=== PATIENT | male | born 1940 | race Caucasian/White ===

== ENCOUNTER 2021-05-20 23:44 | Inpatient (IN) ==
[2021-05-21] MEDS ORDERED: SODIUM CHLORIDE 0.9% 500 ML IV STA (00:06)
[2021-05-21] MEDS ORDERED: ONDANSETRON INJ 2 MG/ML 2 ML VIAL IV STA (00:06)
[2021-05-21] MEDS ORDERED: KETOROLAC TROMETHAMINE 15 MG/ML VIAL IV STA (00:06)
--- NOTE | 2021-05-21 00:11 | Emergency Department Note ---
Impression & Plan Diffuse abdominal pain, Nausea, Leukocytosis, Bowel perforation ED Provider Note NAME: KEITH PARRA AGE: 80 SEX: M : 1940 ARRIVES VIA: Walk-In INFORMANT: [Patient] ED PROVIDER(S): [Christiano Dewitt MD] CHIEF COMPLAINT: Abdominal pain HISTORY OF PRESENT ILLNESS: The patient is a 80-year-old male presents to the ER with around 8 hours of diffuse abdominal pain that radiates to the diaphragm. The pain comes in waves and he has had some slight nausea. The pain is a 7, sometimes a 9 on a scale of 1-10. The patient denies any shortness of breath or sweating. He had a normal bowel movement earlier today. He has no known history of coronary disease. He has been trying Gas-X throughout the night without relief. No bad food eaten, no recent sick contacts. No history of any similar issues. No urinary complaints. REVIEW OF SYSTEMS: See HPI for pertinent positives and negatives. A total of ten systems were reviewed and were otherwise negative. PMHx/PSHx: See Below SOCIAL HISTORY: See Below. PHYSICAL EXAM: GENERAL: Patient is in no acute distress. HEENT: No acute trauma, normocephalic atraumatic, mucous membranes moist, no nasal congestion, no scleral icterus. NECK: No stridor, no adenopathy, no meningismus, trachea is midline. LUNGS: Clear to auscultation bilaterally, no wheeze, no rhonchi, breath sounds equal. HEART: 2/6 systolic murmur heard best at the right sternal border, regular rate and rhythm. ABDOMEN: Soft, significantly diffusely tender, bowel sounds positive and quite hyperactive, no hernias. EXTREMITIES: No cyanosis or edema, full range of motion of all the joints without pain or difficulty, no signs for acute trauma. NEUROLOGIC: Oriented x 3, no acute motor or sensory deficits, no focal weakness. SKIN: No rash, no jaundice, no diaphoresis. DIFFERENTIAL DIAGNOSIS: Appendicitis, testicular torsion, infections, diverticulitis, UTI, obstruction, mesenteric ischemia, cardiac ischemia, viral or foodborne illness, aortic pathology, inflammatory bowel disease, renal colic, PUD, pancreatitis, biliary pathology, hernia, volvulus, constipation, as well as other pathologies. EMERGENCY DEPARTMENT COURSE/PROCEDURES: ECG: Indication was abdominal pain. The ECG shows a normal sinus rhythm with a rate of 81. There is no ST elevation, no PVCs. The QTc is 446. Continuous Cardiac Monitoring: An order was placed for continuous cardiac monitoring. The monitor shows a rate of 83 with normal sinus rhythm. Critical Care Note: I have personally spent 62 minutes of critical care time in the direct management of this patient. This includes bedside care, interpretation of diagnostic studies, and testing, discussion with consultants, patient, and family members, and other required patient management activities. This 62 minutes is in excess of all separately billable procedures. MEDICAL DECISION MAKING: There is a moderate leukocytosis at 17,000, this could be consistent with infection or his pain. There was a normal hemoglobin and platelet count. No significant electrolyte abnormality or kidney failure. No evidence for pancreatitis. No worrisome liver enzyme elevation. ECG shows a sinus rhythm, no acute ischemia. Cardiac enzyme testing x1 is not consistent with acute cardiac injury. Chest x-ray does not show free air, pneumonia or pneumothorax. Urinalysis does not show evidence for infection. Abdominal and pelvis CT shows free air with the possibility of small bowel ischemia. There was a distended bladder with left hydronephrosis. On exam, the patient's abdomen was diffusely significantly tender with hyperactive bowel sounds. The patient received IV morphine for pain, he was given IV Toradol for pain. He was given IV Zofran and IV saline. He received IV Zosyn as empiric antibiotic coverage. With the findings on CT, I did contact general surgery. Surgery is on the way to see the patient here in the ED. I suspect the patient will go to the operating room. The patient is aware of his findings. I did speak with case management. Past Med/Surg History Medical History Hypertension Social History Smoking Status: Former smoker Preferred Language: Latvian Feels Safe at Home: Yes Allergies Allergies Allergy/AdvReac Type Severity Reaction Status Date / Time No Known Allergies Allergy Unverified 05/21/21 01:04 Home Meds Home Medications Medication Instructions Recorded Confirmed aspirin [Aspirin Low Dose] 81 mg PO DAILY 05/21/21 05/21/21 metoprolol succinate 25 mg PO DAILY 05/21/21 05/21/21 [id number] 1 tab PO DAILY 05/21/21 05/21/21 [Centrum Silver] pantoprazole 20 mg PO DAILY 05/21/21 05/21/21 valsartan 80 mg PO DAILY 05/21/21 05/21/21 Results & Data (ED) Vital Signs Vital Signs - 24 hr 05/20/21 23:49 05/21/21 00:02 05/21/21 00:30 Temperature 36.8 C Temperature Source Temporal Artery Scan Pulse Rate 83 79 Pulse Rhythm Regular Respiratory Rate 18 20 20 Respiratory Effort / Characteristics Non-Labored Spontaneous Non-Labored Spontaneous Respiratory Depth Normal Normal Respiratory Pattern Regular Blood Pressure 169/87 H Blood Pressure [Right Arm] 165/90 H Blood Pressure Mean 114 Blood Pressure Mean [Right Arm] 115 Blood Pressure Position Sitting Blood Pressure Position [Right Arm] Sitting Pulse Oximetry 96 98 98 Oxygen Delivery Method Room Air Room Air Room Air Sepsis Recent Fever Within 48 Hours No Sepsis New/Unexplained Change in Mental Status N/A Sepsis Action Taken by Nursing No Action Required 05/21/21 00:56 05/21/21 02:47 Temperature Temperature Source Pulse Rate Pulse Rhythm Respiratory Rate 20 Respiratory Effort / Characteristics Non-Labored Spontaneous Non-Labored Spontaneous Respiratory Depth Normal Normal Respiratory Pattern Regular Blood Pressure Blood Pressure [Right Arm] 136/77 Blood Pressure Mean Blood Pressure Mean [Right Arm] 96 Blood Pressure Position Blood Pressure Position [Right Arm] Sitting Pulse Oximetry 98 Oxygen Delivery Method Room Air Room Air Sepsis Recent Fever Within 48 Hours Sepsis New/Unexplained Change in Mental Status Sepsis Action Taken by Skilled Nursing Medications Current Medication List: was personally reviewed by me Laboratory Data Attestation: I reviewed the patient's lab results. Result diagrams: 05/21/21 00:03 05/21/21 00:03 Lab Results 05/21/21 05/21/21 05/21/21 Range/Units 00:03 00:03 01:20 WBC 17.25 H (4.8-10.8) K/uL RBC 5.19 (4.7-6.1) M/uL Hgb 16.4 (14.0-18.0) g/dL Hct 45.5 (42-52) % MCV 87.7 (80-100) fL MCH 31.6 (25-34) pg MCHC 36.0 (32-36) g/dL RDW Std Deviation 39.8 (36.4-46.3) fL RDW Coeff of Jolene 12.5 (11.5-14.5) % Plt Count 321 (130-400) K/uL MPV 9.6 (7.4-10.4) fL Immature Gran % (Auto) 0.2 % Neut % (Auto) 86.3 % Lymph % (Auto) 7.8 % [place] % (Auto) 5.6 % Eos % (Auto) 0.1 % Baso % (Auto) 0.0 % Neut # (Auto) 14.88 H (1.4-6.5) K/uL Lymph # (Auto) 1.35 (1.2-3.4) K/uL [place] # (Auto) 0.97 H (0.11-0.59) K/uL Eos # (Auto) 0.01 (0-0.5) K/uL Baso # (Auto) 0.00 (0-0.2) K/uL Immature Gran # (Auto) 0.04 H (0.00-0.02) K/uL Sodium 140 (136-145) mmol/L Potassium 3.7 (3.5-5.1) mmol/L Chloride 106 (98-107) mmol/L Carbon Dioxide 27 (21-32) mmol/L Anion Gap 7.0 (3-11) BUN 20 H (7-18) mg/dl Creatinine 1.13 (0.6-1.4) mg/dl Est Cr Clr Drug Dosing Not Reportable Est GFR ( Amer) 71.8 ml/min Est GFR (Non-Af Amer) 61.9 ml/min BUN/Creatinine Ratio 18.0 (10-20) Glucose 138 H (70-99) mg/dl Calcium 9.0 (8.5-10.1) mg/dl Total Bilirubin 0.5 (0.2-1) mg/dl AST 17 (15-37) U/L ALT 28 (12-78) U/L Alkaline Phosphatase 82 (45-117) U/L Troponin I < 0.015 (0-0.045) ng/ml Total Protein 8.0 (6.4-8.2) gm/dl Albumin 4.2 (3.4-5.0) gm/dl Globulin 3.8 (2.5-4.0) gm/dl Albumin/Globulin Ratio 1.1 (0.9-2) Lipase 256 (73-393) U/L Urine Color Yellow Urine Appearance Clear (Clear) Urine pH 6.5 (4.5-7.5) Ur Specific [place] 1.016 (1.000-1.030) Urine Protein Negative (Negative) Urine Glucose (UA) Negative (Negative) Urine Ketones Negative (Negative) Urine Blood Negative (Negative) Urine Nitrite Negative (Negative) Urine Bilirubin Negative (Negative) Urine Urobilinogen Negative (Negative) Ur Leukocyte Esterase Negative (Negative) Administered Medications Piperacillin Sod/Tazobactam Sod (Zosyn) 4.5 gm in 120 mls @ 240 mls/hr IV NOW ONE Stop: 05/21/21 03:08 Last Admin: 05/21/21 02:45 Dose: 240 mls/hr Documented by: [id number] Morphine Sulfate (Morphine Sulfate 4 Mg/Ml 1 Ml Carp\Vial) 2 mg IV Q15M PRN PRN Reason: Pain Stop: 06/04/21 00:05 Last Admin: 05/21/21 01:27 Dose: 2 mg Documented by: [id number] Admin: 05/21/21 00:55 Dose: 2 mg Documented by: [id number] Discontinued Medications Sodium Chloride (Nss) 500 mls @ 999 mls/hr IV .Q31M STA Stop: 05/21/21 00:36 Last Infusion: 05/21/21 00:59 Dose: 0 mls/hr Documented by: [id number] Admin: 05/21/21 00:18 Dose: 999 mls/hr Documented by: [id number] Ketorolac Tromethamine (Ketorolac Tromethamine 15 Mg/Ml Vial) 15 mg IV NOW STA Stop: 05/21/21 00:07 Last Admin: 05/21/21 00:17 Dose: 15 mg Documented by: [id number] Ondansetron HCl (Ondansetron Inj 2 Mg/Ml 2 Ml Vial) 4 mg IV NOW STA Stop: 05/21/21 00:07 Last Admin: 05/21/21 00:55 Dose: 4 mg Documented by: [id number] Imaging Data Attestation: I personally reviewed and interpreted this imaging study as follows: My Impression: Chest x-ray: As per my review there is no pneumonia or CHF. There is no free air. Radiologist's Impression: Abdominal and pelvis CT with IV contrast: There is diffuse pneumoperitoneum. There is pneumatosis intestinalis along a small bowel loop in the mid abdomen. Findings suggestive of bowel ischemia. No portal venous gas. No free fluid or loculated fluid collection. Mild diffuse mesenteric fat stranding. Normal appendix. Gallstones without evidence for acute cholecystitis. 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 There is marked distention of the urinary bladder. There is moderate left hydronephrosis and hydroureter with no radiopaque calculus in the visualized portion of the left ureter. Discharge Plan Visit Data Chief Complaint: Abdominal Pain Stated Complaint: CHEST PAIN ED Provider: Christiano Dewitt Discharge Problem: Diffuse abdominal pain, Nausea, Leukocytosis, Bowel perforation Patient Disposition: Admitted As Inpatient Condition: Serious Forms Stand Alone Forms: [facility] [employer] Prescriptions Prescriptions: No Action valsartan 80 mg Tablet 80 mg PO DAILY RF: 0 aspirin [Aspirin Low Dose] 81 mg Tablet,Delayed Release (Dr/Ec) 81 mg PO DAILY RF: 0 pantoprazole 20 mg Tablet,Delayed Release (Dr/Ec) 20 mg PO DAILY RF: 0 metoprolol succinate 25 mg Tablet Extended Release 24 Hr 25 mg PO DAILY RF: 0 Centrum Silver Tablet 1 tab PO DAILY RF: 0 Referrals Referrals: PCP,NO [Primary Care Provider] - Discharge Problem: Leukocytosis Qualifiers: Leukocytosis type: unspecified Qualified Code(s): D72.829 - Elevated white blood cell count, unspecified
[2021-05-21 00:14] LABS: Eosinophils # (auto) 0.01 K/uL (0-0.5); Eosinophils % (auto) 0.1 %; Hematocrit (blood only) 45.5 % (42-52); Hemoglobin 16.4 g/dL (14.0-18.0); Immature Granulocytes # (auto) 0.04 K/uL (0.00-0.02); Immature Granulocytes % (auto) 0.2 %; Lymphocytes # (auto) 1.35 K/uL (1.2-3.4); Lymphocytes % (auto) 7.8 %; Mean Corpuscular Hemoglobin 31.6 pg (25-34); Mean Corpuscular Volume 87.7 fL (80-100); Mean Platelet Volume 9.6 fL (7.4-10.4); Monocytes # (auto) 0.97 K/uL (0.11-0.59); Monocytes % (auto) 5.6 %; Neutrophils # (auto) 14.88 K/uL (1.4-6.5); Neutrophils % (auto) 86.3 %; Platelet Count 321 K/uL (130-400); RDW Coefficient of Variation 12.5 % (11.5-14.5); RDW Standard Deviation 39.8 fL (36.4-46.3); Red Blood Count 5.19 M/uL (4.7-6.1); White Blood Count 17.25 K/uL (4.8-10.8)
[2021-05-21 00:39] LABS: Alanine Aminotransferase 28 U/L (12-78); Albumin Level 4.2 gm/dl (3.4-5.0); Blood Urea Nitrogen 20 mg/dl (7-18); Carbon Dioxide 27 mmol/L (21-32); Chloride 106 mmol/L (98-107); Est GFR (African American) 71.8 ml/min; Est GFR (Non-African American) 61.9 ml/min; Glucose 138 mg/dl (70-99); Lipase 256 U/L (73-393); Potassium 3.7 mmol/L (3.5-5.1); Sodium 140 mmol/L (136-145)
[2021-05-21 00:44] LABS: Albumin Globulin Ratio 1.1 (0.9-2); Alkaline Phosphatase 82 U/L (45-117); Aspartate Aminotransferase 17 U/L (15-37); Bilirubin,Total 0.5 mg/dl (0.2-1); Globulin 3.8 gm/dl (2.5-4.0); Troponin I < 0.015 ng/ml (0-0.045)
[2021-05-21] MEDS ORDERED: OPTIRAY 320 100ml IV ONE (00:53)
[2021-05-21] MEDS: MoRPHine SULFATE 4 MG/ML 1 ML CARP\\VIAL IV PRN ×3 (00:55→04:05)
[2021-05-21 01:30] LABS: Appearance Urine Clear (Clear); Bilirubin Urine Negative (Negative); Blood Urine Negative (Negative); Color Urine Yellow; Glucose Urine UA Negative (Negative); Ketones Urine Negative (Negative); Leukocyte Esterase Urine Negative (Negative); Nitrite Urine Negative (Negative); Protein Urine Negative (Negative); Specific Gravity Urine 1.016 (1.000-1.030); Urobilinogen Urine Negative (Negative); pH Urine 6.5 (4.5-7.5)
[2021-05-21] MEDS ORDERED: PIPERACILLIN/TAZOBACTAM 4.5 GM/120 ML BAG IV ONE (02:39)
[2021-05-21] MEDS ORDERED: PIPERACILL/TAZOBAC CONSULT ACTIVE PRN ×2 (02:39→09:46)
--- NOTE | 2021-05-21 04:00 | History & Physical Report ---
Date of Service May 21, 2021 Assessment & Plan (1) Pneumoperitoneum of unknown etiology: 80-year-old male with sudden onset abdominal pain with pneumoperitoneum on imaging and findings of peritonitis on physical exam. His vitals are normal. Discussed the need for surgery with the patient and his . We can start up for the scope but will likely perform a laparotomy and likely bowel resection. Plan for diagnostic laparoscopy, possible exploratory laparotomy, possible bowel resection, possible ostomy The risk the procedure were discussed to include but not limited to bleeding, infection, abscess, hernia, damage to surrounding structures, need for future more extensive surgery, and the risk of anesthesia Diagnosis, details the procedure and recovery, and plan of care were discussed with the patient, all questions were answered, the patient expressed understanding agrees the plan of care as stated (2) Leukocytosis: (3) Diffuse abdominal pain: History of Present Illness Primary Care Provider: NO PCP 80-year-old male presented to the emergency department with sudden onset abdominal pain started at 4:30 yesterday afternoon. He is from [place] and is in town visiting his granddaughter. His is present with him. The pain was quite severe and extended from his rectum up to his xiphoid. He had some nausea when he stood up to use the restroom and they decided to come into the emergency department. He has used NSAIDs in the past, but has not needed them since he had a shoulder replaced 4 months ago. He had a hemorrhoid surgery in the past but no other abdominal surgeries. No prior history of diverticulitis. He his last colonoscopy was about 5 to 10 years ago with no significant findings. He is otherwise healthy with an occasional irregular heartbeat but no history of A. fib. He does not smoke. No history of clotting disorder. CT of the abdomen showed moderate pneumoperitoneum and a questionable pneumatosis of the small bowel concerning for ischemia with perforation. Allergies Allergy/AdvReac Type Severity Reaction Status Date / Time No Known Allergies Allergy Unverified 05/21/21 01:04 Home Medications Medication Instructions Recorded Confirmed Type aspirin [Aspirin Low Dose] 81 mg PO DAILY 05/21/21 05/21/21 History metoprolol succinate 25 mg PO DAILY 05/21/21 05/21/21 History [id number]-[id number] 1 tab PO DAILY 05/21/21 05/21/21 History [Centrum Silver] pantoprazole 20 mg PO DAILY 05/21/21 05/21/21 History valsartan 80 mg PO DAILY 05/21/21 05/21/21 History Past Med/Surg History Medical History Hypertension Social History Smoking Status: Former smoker Preferred Language: Kazakh Feels Safe at Home: Yes Review of Systems Review of Systems: All systems reviewed & are unremarkable except as noted in HPI & below Physical Exam Constitutional: WD/WN, vitals as above + acute distress (Moderate) Respiratory: normal respiratory effort, lungs clear to auscultation Cardiovascular: RRR, no murmur, no edema Gastrointestinal (Abdomen): Percussion/Palpation: + abdomen tender (Diffuse tenderness to palpation), + guarding (Guarding in all 4 quadrants), abdomen soft and + hernia (Small reducible umbilical hernia); abdomen not rigid and no hepatosplenomegaly Results & Data Results & Data ([facility]) Vital Signs (Past 12 Hours) Vital Signs Temp Pulse Resp BP BP Pulse Ox 05/21/21 03:00 75 22 95 05/21/21 02:50 69 21 95 05/21/21 02:48 72 21 136/77 94 05/21/21 02:47 20 136/77 98 05/21/21 02:40 75 34 H 93 05/21/21 02:30 70 17 93 05/21/21 02:20 69 24 93 05/21/21 02:10 68 27 H 93 05/21/21 02:00 71 23 94 05/21/21 01:50 68 30 H 93 05/21/21 01:40 71 23 94 05/21/21 01:30 74 22 95 05/21/21 01:21 74 24 97 05/21/21 01:00 76 15 96 05/21/21 00:50 74 20 96 05/21/21 00:40 73 19 96 05/21/21 00:30 74 17 96 05/21/21 00:20 76 22 96 05/21/21 00:10 80 21 96 05/21/21 00:02 83 23 165/90 H 98 05/20/21 23:57 83 22 165/90 H 05/20/21 23:49 36.8 C 83 18 169/87 H 96 Laboratory Results Laboratory Results - last 24 hr 05/21/21 05/21/21 05/21/21 00:03 00:03 01:20 WBC 17.25 H RBC 5.19 Hgb 16.4 Hct 45.5 MCV 87.7 MCH 31.6 MCHC 36.0 RDW Std Deviation 39.8 RDW Coeff of Jolene 12.5 Plt Count 321 MPV 9.6 Immature Gran % (Auto) 0.2 Neut % (Auto) 86.3 Lymph % (Auto) 7.8 [place] % (Auto) 5.6 Eos % (Auto) 0.1 Baso % (Auto) 0.0 Neut # (Auto) 14.88 H Lymph # (Auto) 1.35 [place] # (Auto) 0.97 H Eos # (Auto) 0.01 Baso # (Auto) 0.00 Immature Gran # (Auto) 0.04 H Sodium 140 Potassium 3.7 Chloride 106 Carbon Dioxide 27 Anion Gap 7.0 BUN 20 H Creatinine 1.13 Est Cr Clr Drug Dosing Not Reportable Est GFR ( Amer) 71.8 Est GFR (Non-Af Amer) 61.9 BUN/Creatinine Ratio 18.0 Glucose 138 H Calcium 9.0 Total Bilirubin 0.5 AST 17 ALT 28 Alkaline Phosphatase 82 Troponin I < 0.015 Total Protein 8.0 Albumin 4.2 Globulin 3.8 Albumin/Globulin Ratio 1.1 Lipase 256 Urine Color Yellow Urine Appearance Clear Urine pH 6.5 Ur Specific [place] 1.016 Urine Protein Negative Urine Glucose (UA) Negative Urine Ketones Negative Urine Blood Negative Urine Nitrite Negative Urine Bilirubin Negative Urine Urobilinogen Negative Ur Leukocyte Esterase Negative COVID-19 Eval Order SARS-CoV-2 (PCR) 05/21/21 05/21/21 03:06 03:06 WBC RBC Hgb Hct MCV MCH MCHC RDW Std Deviation RDW Coeff of Jolene Plt Count MPV Immature Gran % (Auto) Neut % (Auto) Lymph % (Auto) [place] % (Auto) Eos % (Auto) Baso % (Auto) Neut # (Auto) Lymph # (Auto) [place] # (Auto) Eos # (Auto) Baso # (Auto) Immature Gran # (Auto) Sodium Potassium Chloride Carbon Dioxide Anion Gap BUN Creatinine Est Cr Clr Drug Dosing Est GFR ( Amer) Est GFR (Non-Af Amer) BUN/Creatinine Ratio Glucose Calcium Total Bilirubin AST ALT Alkaline Phosphatase Troponin I Total Protein Albumin Globulin Albumin/Globulin Ratio Lipase Urine Color Urine Appearance Urine pH Ur Specific [place] Urine Protein Urine Glucose (UA) Urine Ketones Urine Blood Urine Nitrite Urine Bilirubin Urine Urobilinogen Ur Leukocyte Esterase COVID-19 Eval Order Covid19 at [facility] SARS-CoV-2 (PCR) Pending Diagnostic Findings I personally reviewed the CT scan and interpreted myself. There is moderate pneumoperitoneum. There is possible pneumatosis and a loop of bowel in the midabdomen. No significant diverticulitis, no evidence of gastric ulcer. PG Care Time/CCT Total # of Minutes Spent Total Time Spent with Patient: Total time spent is greater than 50% in coordination of care (as documented) at patient's floor/unit and/or counseling patient: Coding Level of Care Code 82995 Initial Inpt Care Lvl 3 Diagnoses Pneumoperitoneum of unknown etiology K66.8 Leukocytosis D72.829 Leukocytosis type: unspecified Diffuse abdominal pain R10.84 (1) Leukocytosis Leukocytosis type: unspecified Qualified Code(s): D72.829 - Elevated white blood cell count, unspecified
[2021-05-21] MEDS ORDERED: SUCCINYLCHOLINE CHLORIDE 20 MG/ML 10 ML VIAL IV ONE (04:36)
[2021-05-21] MEDS ORDERED: ROCURONIUM BROMIDE 10 MG/ML 5 ML VIAL IV ONE (04:36)
[2021-05-21] MEDS ORDERED: PROPOFOL IV EMULSION 10 MG/ML 20 ML VIAL IV ONE (04:36)
[2021-05-21] MEDS ORDERED: fentaNYL citrate 100 MCG/2 ML VIAL ONE (04:37)
[2021-05-21] MEDS ORDERED: ePHEDrine sulfate 50 MG/ML AMP IV PRN (04:57)
[2021-05-21] MEDS ORDERED: HYDROmorphone INJ 2 MG/ML SYR/VIAL IV PRN (04:57)
[2021-05-21] MEDS ORDERED: fentaNYL citrate 100 MCG/2 ML VIAL IV PRN (04:57)
[2021-05-21] MEDS ORDERED: ONDANSETRON INJ 2 MG/ML 2 ML VIAL IV PRN ×2 (04:57→09:46)
[2021-05-21] MEDS ORDERED: ATROPINE SULFATE 0.1 MG/ML 10ML SYR IV PRN (04:57)
--- NOTE | 2021-05-21 04:58 | Anesthesiology Consultation ---
Date of Service May 21, 2021 Assessment & Plan ASA [id number] Proposed Anesthesia Anesthesia Type: General Risk / Benefits Reviewed With: PT / POA / Parent / Guardian, Accepts Plan and Informed Consent Obtained Additional Comments: rsi History Surgery Operation Date: 05/21/21 04:25 Proposed Procedures p Exploratory Laparotomy - Thom Vasquez DO, FACS Height/Weight Height: 5 ft 8 in Weight: 86.3 kg Allergies Allergy/AdvReac Type Severity Reaction Status Date / Time No Known Allergies Allergy Unverified 05/21/21 01:04 Medications Home Medications Medication Instructions Recorded Confirmed Last Taken aspirin [Aspirin Low Dose] 81 mg PO DAILY 05/21/21 05/21/21 05/20/21 metoprolol succinate 25 mg PO DAILY 05/21/21 05/21/21 05/20/21 [id number] 1 tab PO DAILY 05/21/21 05/21/21 05/20/21 [Centrum Silver] pantoprazole 20 mg PO DAILY 05/21/21 05/21/21 05/20/21 valsartan 80 mg PO DAILY 05/21/21 05/21/21 05/20/21 Active Medications Generic Name Dose Route Start Last Admin Trade Name Freq PRN Reason Stop Dose Admin Morphine Sulfate 2 mg 05/21/21 00:06 05/21/21 04:05 Morphine Sulfate 4 Mg/Ml 1 Ml Carp\Vial IV 06/04/21 00:05 2 mg Q15M PRN Administration Pain NPO Date Last Intake of Fluids: 05/20/21 Time Last Intake of Fluids: 01:00 Date Last Intake of Solids: 05/20/21 Time Last Intake of Solids: 01:00 Past Medical History Medical History (Updated 05/21/21 @ 04:02 by Thom Vasquez DO, KARLOS) Hypertension Pneumoperitoneum of unknown etiology Exercise / Class Metabolic Activity II 4-5 Yardwork/Stairs/Walk up hill Past Anesthesia History No Hx of Anesthesia Complications and No Family Hx of Anesthesia Complications History of PONV No Hx of PONV and No Hx of Motion Sickness Social History Smoking Status: Former smoker Review of Systems denies fever/cough/ colds/ chest pain/ SOB/ ASHWINI denies ASHWINI Physical Exam Vital Signs Last Vital Signs Temp 36.8 C 05/20/21 23:49 Pulse 70 05/21/21 04:00 Resp 27 H 05/21/21 04:00 BP 136/77 05/21/21 02:48 Pulse Ox 94 05/21/21 04:00 ENMT Mouth: + dentition abnormality (missing teeth); no TMJ abnormality Thyromental Distance: > or= 3.5 Finger Breadths Mallampati Class: II Neck neck extension not limited Respiratory normal respiratory effort; no respiratory distress Auscultation: lungs clear to auscultation bilaterally Cardiovascular Rate/Rhythm: regular rate and regular rhythm Neurologic moves all extremities Psychiatric Orientation: alert and oriented x 3 Testing Laboratory Results 05/21/21 00:03 05/21/21 00:03 Urine Color Yellow 05/21/21 01:20 Urine Appearance Clear (Clear) 05/21/21 01:20 Urine pH 6.5 (4.5-7.5) 05/21/21 01:20 Ur Specific [place] 1.016 (1.000-1.030) 05/21/21 01:20 Urine Protein Negative (Negative) 05/21/21 01:20 Urine Glucose (UA) Negative (Negative) 05/21/21 01:20 Urine Ketones Negative (Negative) 05/21/21 01:20 Urine Nitrite Negative (Negative) 05/21/21 01:20 Ur Leukocyte Esterase Negative (Negative) 05/21/21 01:20
[2021-05-21] MEDS ORDERED: BUPIVACAINE LIPOSOME 1.3% 266 MG/20 ML VIAL ONE (05:17)
[2021-05-21] MEDS ORDERED: BUPIVACAINE 0.5 % 5 MG/1 ML MPF 30ML VIAL ONE (05:17)
[2021-05-21] MEDS ORDERED: HYDROmorphone INJ 2 MG/ML SYR/VIAL ONE (05:40)
[2021-05-21] MEDS ORDERED: ePHEDrine sulfate 50 MG/ML AMP ONE (06:35)
[2021-05-21] MEDS ORDERED: SUGAMMADEX SODIUM 200 MG/2 ML VIAL IV ONE (06:36)
[2021-05-21] MEDS ORDERED: ONDANSETRON INJ 2 MG/ML 2 ML VIAL ONE (06:48)
--- NOTE | 2021-05-21 08:23 | Operative Report ---
PG Post Operative Report Pre & Post Diagnosis Operation Date: 05/21/21 04:25 Pre-Op Diagnosis: Pneumoperitoneum of unknown etiology Post-Op Diagnosis: Small Bowel Perforation I identified the patient and participated in the time-out.: Yes Procedure Operation Date: 05/21/21 04:25 Actual Procedures p Diagnostic Laparoscopy, Laparoscopic Washout, Laparoscopic Assisted Small Bowel Resection(Not Applicable) - Thom Vasquez DO, FACS Surgeon Thom Vasquez DO, KARLOS Ruling Technician None Estimated Blood Loss 5 Findings Consistent with Post-Op Diagnosis Diagnostic laparoscopy with a small amount of fibrinous exudate and minimal contamination but some evidence of peritoneal irritation. We ran the small bowel and there was a small perforation on the mesenteric side of the bowel and approximately mid jejunum. This was tagged with a stitch. We then explored the remainder of the small bowel and there was no evidence of other injury or problem. The colon was examined and the appendix appeared normal. There is no evidence of acute diverticulitis or perforation. A small supraumbilical midline incision was made in the perforated small bowel was exteriorized. Small bowel resection was performed in a [id number] functional end-to-end small bowel anastomosis was created. It was oversewn with Lembert sutures and the mesenteric defect was closed with running 3-0 Vicryl. Abdomen was irrigated and the small bowel was again run and there was no other injuries noted. ASHLIE drains were placed in the left and right pericolic gutters. Exparel injected. Fascia closed with interrupted Prolene [id number] sutures. Specimens Small bowel perforation Drains 10 mm ASHLIE drains in the left and right pericolic gutters Anesthesia Type General Complications none Disposition Accompanied Patient To Recovery: No Disposition: Recovery Room Indications 80-year-old otherwise healthy male presented with sudden onset of abdominal pain . On exam he showed signs of peritonitis but his vital signs are stable. His white count was 17,[address] scan revealed pneumoperitoneum with possible pneumatosis of the small bowel. Plan for diagnostic laparoscopy, possible exploratory laparotomy, possible bowel resection, possible ostomy. The risks of the procedure were discussed, all questions were answered, and the patient agreed to proceed with surgery as planned. Description of Procedure The patient was properly identified, consented, and taken to the operating room where he was placed in the supine position. General endotracheal anesthesia was induced. A martinez catheter, an NG tube, SCDs and a safety belt were placed. Preoperative antibiotics were administered. The patient's abdomen was prepped and draped in the standard sterile fashion. Surgical timeout was performed and all parties were in agreement that this was the correct patient and procedure to be performed and we continued as planned. An incision was made in the left upper quadrant and the Veress needle was inserted. Saline drop test confirmed entry into the peritoneum. The abdomen was insufflated with carbon dioxide which the patient tolerated without incident. The abdomen was then entered using the Optiview technique and a 5 mm trocar. The laparoscope was inserted and no damage from initial trocar or Veress needle placement was noted, no gross abnormalities were noted within the 4 quadrants of the abdomen. There was some fibrinous exudate along the left and right paracolic gutters. There is a small amount of turbid fluid in the left paracolic gutter. The peritoneum in these areas appeared irritated with some erythema and petechiae. 5 mm trochars were then placed in the right upper quad rant, right lower quadrant, and in the left lower quadrant. The turbid fluid was suctioned and I initially examined the sigmoid colon for evidence of perforated diverticulitis. The patient did have diverticula and appeared to have stool in his colon, but there was no evidence of perforation or significant diverticulitis. Then ran the small bowel starting at the ligament of Treitz and working distally. In the mid small bowel somewhere in the distal jejunum to proximal ileum there was a small area of bleeding and a small perforation on the mesenteric side of the bowel was noted. This was tagged with a silk suture on the antimesenteric side. We continued to run the small bowel and there was no evidence of other perforations or abnormalities. I then examined the colon thoroughly and the appendix appeared normal and the colon had no evidence of significant inflammation or perforation. The stomach and visualized duodenum did not appear to have any evidence of significant inflammation or perforation either. A 5 cm supra umbilical midline incision was made and the silk tag was grasped and the bowel was brought through this incision. It was examined and there is no obvious reason for the perforation as it did not appear overtly ischemic or to have any mass in the area. I then performed a small bowel resection. A window was created in the mesentery several centimeters from perforation on either side. 45 mm purple loaded Endo TENISHA stapler was used to divide the bowel. Sonicision was used to divide the mesentery. The bowel was passed off as specimen. We then performed a [id number]-co-[id number] functional end-to-end small bowel anastomosis. The antimesenteric corners were cut with curved Pollack's. Prior to this the area was draped with a towel. A 60 mm purple loaded Endo TENISHA stapler was then fired with 2 sequential firings to create the anastomosis. The common enterotomy was then closed using a purple loaded Endo TENISHA stapler. The anastomosis was then reinforced with interrupted 3-0 silk Lembert sutures. The bowel appeared healthy and there is no evidence of a leak. The mesenteric defect was then closed with a running 3-0 Vicryl suture. The bowel was then allowed to fall back into the abdomen. A Henson trocar was then placed and secured in place with 0 Vicryl sutures. We reentered laparoscopically and the abdomen was irrigated with 2 L of saline. I then ran the small bowel again from the ligament of Treitz to the terminal ileum and there was no evidence of injury and the anastomosis appeared healthy with no twisting of the mesentery. We then reexamined the colon and it appeared normal with no evidence of perforation or significant inflammation. 10 mm flat ASHLIE drains were then placed in the right and left paracolic gutters and exited through the left upper quadrant and right upper quadrant 5 mm port sites. The ports were removed and the abdomen was allowed to collapse. The fascia of the supraumbilical midline incision was closed using interrupted 0 Prolene [id number] sutures. Exparel mixed with Marcaine was injected in the fascia and incision sites. The skin of the supraumbilical midline incision was closed with interrupted 3-0 Vicryl deep dermal sutures. 4 Monocryl subcuticular sutures were then used to close the skin of all the port sites. Dermabond was placed over the incisions. The drains were sewn to place using 2-0 nylon sutures. Drain dressings were placed. The Martinez catheter was removed and the NG tube was left in place. Patient will be [facility] for further convalescence. We will continue on antibiotics and await return of bowel function. The patient was extubated in the operating room and taken to the PACU where he recovered without apparent incident. All sponge, instrument and needle counts were correct at the conclusion of the procedure. The patient tolerated the procedure well. I attest to the content of the Intraoperative Record and any orders documented therein. Any exceptions are noted below.
--- NOTE | 2021-05-21 08:42 | CT Scan Report ---
CT SCAN OF THE ABDOMEN AND PELVIS WITH IV CONTRAST CLINICAL HISTORY: Lower abdominal pain. COMPARISON STUDY: No priors. TECHNIQUE: Following the IV administration of 94 cc of Optiray 320, CT scan of the abdomen and pelvi s is performed from the lung bases to the proximal femora. Images are reviewed in the axial, sagittal , and coronal planes. IV contrast was administered without complication. A dose lowering technique wa s utilized adhering to the principles of ALARA. CT DOSE: 537.34 mGy.cm FINDINGS: Lung bases: The heart is normal in size and without pericardial effusion. The coronary arteries and a ortic valve leaflets a tiny hiatal hernia is observed. Are densely calcified. The lung bases are dash r noting bibasilar scarring/atelectasis. Liver: The contrast-enhanced liver is normal in size, contour, and attenuation. There is no intrahepa tic biliary ductal dilatation. The hepatic veins and portal veins are patent. Gallbladder: There are layering calcified gallstones without CT evidence of acute cholecystitis. Spleen: Normal in size and attenuation. Pancreas: Unremarkable. Adrenal glands: Unremarkable. Kidneys: The contrast enhanced kidneys demonstrate cortical atrophy. There is moderate to severe left hydroureteronephrosis. The left ureter is dilated to the level of the bladder. The vesicoureteral ju nction is not well assessed due to streak artifact. The kidneys enhance symmetrically. A 3.6] liters cyst is noted in the left upper pole. Abdominal vasculature: The abdominal aorta is normal in course and caliber noting moderate to advance d atherosclerotic calcification. Bowel: There is moderate colonic fecal retention. No bowel obstruction is seen. There is mild colonic diverticulosis without clear CT evidence of acute diverticulitis. There is no pneumatosis intestinal is or portal venous gas. Trace interloop fluid is seen in loops of small bowel in the right lower cindy drant. The appendix is well-visualized and normal. Peritoneum: There is a moderate amount of intraperitoneal free air seen throughout the abdomen. Lymphadenopathy: None. Pelvic viscera: Evaluation of the pelvis is severely degraded by streak artifact from bilateral hip a rthroplasties. The bladder is distended, and the wall appears thickened and trabeculated suggesting c hronic outlet obstruction. Bladder diverticula are noted. The prostate gland appears enlarged but is not well evaluated. There are small fat-containing inguinal hernias. Skeletal structures: The skeletal structures are osteopenic. There is moderate lumbosacral spondylosi s. There is resorptive change versus an osteolytic lesion within the left acetabulum adjacent to the arthroplasty. This is seen on image #[id number] and measures 4.1 cm. No additional destructive bony lesion i s suggested. Bilateral hip arthroplasties are in place. IMPRESSION: 1. There is a moderate volume of pneumoperitoneum indicating visceral perforation. 2. The site of perforation is not clearly identified. Surgical assessment is advised. 3. Trace interloop fluid is seen involving small bowel loops in the right lower quadrant. 4. Cardiomegaly. 5. There is marked bladder distention. 6. Moderate to severe left hydroureteronephrosis. The left ureter is dilated to the level of the blad paloma. The vesicoureteral junction is not visualized due to significant streak artifact. 7. There is a 4.1 cm osteolytic lesion versus bony resorption seen involving the left acetabulum. No additional destructive bone lesions are suggested and postoperative change is favored. 8. Moderate constipation. 9. There is a least mild colonic diverticulosis without clear CT evidence of acute diverticulitis. 10. Cholelithiasis. 11. Additional findings as above. ACT 112: Negative or not required by law. Electronically signed by: Christiano Saul M.D. 05/21/2021 8:40 AM
--- NOTE | 2021-05-21 09:05 | XRay Report ---
SINGLE VIEW CHEST CLINICAL HISTORY: Generalized abdominal pain. FINDINGS: An AP, portable, upright chest radiograph is obtained. No prior studies are available for c omparison at the time of dictation. The heart is top normal for projection noting atherosclerotic ca lcification of the thoracic aorta. There is mild bibasilar atelectasis. No airspace consolidation or large pleural effusion is identified. No pneumothorax is seen. The skeletal structures are osteopenic . The bony thorax is grossly intact. A left shoulder arthroplasty is in place. Fusion hardware is see n in the lower cervical spine. IMPRESSION: No acute cardiopulmonary abnormality. ACT 112: Negative or not required by law. Electronically signed by: Christiano Saul M.D. 05/21/2021 9:04 AM
[2021-05-21] MEDS ORDERED: MoRPHine SULFATE 4 MG/ML 1 ML CARP\\VIAL IV PRN (09:46)
[2021-05-21] MEDS ORDERED: PIPERACILLIN/TAZOBACTAM 3.375 GM in DEXTROSE 5% 100 ML IV STA (10:13)
[2021-05-21] MEDS: LACTATED RINGER'S 1,000 ML IV SCH ×2 (10:22→18:20)
[2021-05-21] MEDS: METOPROLOL SUCC 25MG EXT REL TAB PO SCH (10:40)
[2021-05-21] MEDS: PANTOprazole 40 MG in SYRINGE 0 ML IV SCH (10:40)
[2021-05-21] MEDS: ACETAMINOPHEN 1,000 MG/100 ML VIAL IV SCH ×2 (10:45→18:21)
--- NOTE | 2021-05-21 14:06 | Anesthesiology Progress Note ---
Date of Service May 21, 2021 Anesthesia Post Procedure Vital Signs Vital Signs: Temp Pulse Pulse Pulse Resp BP BP 05/21/21 12:47 36.8 C 75 16 110/63 05/21/21 11:44 36.4 C L 80 16 105/62 05/21/21 10:45 36.6 C 88 15 133/77 05/21/21 10:16 36.4 C L 84 15 131/71 05/21/21 09:46 36.7 C 83 14 146/75 H 05/21/21 09:30 37.1 C 83 14 134/75 05/21/21 09:20 90 14 135/77 05/21/21 09:10 88 14 151/79 H 05/21/21 09:00 83 14 143/80 H 05/21/21 08:50 36.4 C L 94 H 14 150/85 H 05/21/21 08:40 90 14 145/85 H 05/21/21 08:30 96 H 14 139/77 05/21/21 08:23 36.5 C 99 H 10 L 142/77 H 05/21/21 04:00 70 27 H 05/21/21 03:00 75 22 05/21/21 02:50 69 21 05/21/21 02:48 72 21 136/77 05/21/21 02:47 20 136/77 05/21/21 02:40 75 34 H 05/21/21 02:30 70 17 05/21/21 02:20 69 24 05/21/21 02:10 68 27 H 05/21/21 02:00 71 23 05/21/21 01:50 68 30 H 05/21/21 01:40 71 23 05/21/21 01:30 74 22 05/21/21 01:21 74 24 05/21/21 01:00 76 15 05/21/21 00:50 74 20 05/21/21 00:40 73 19 05/21/21 00:30 74 17 05/21/21 00:20 76 22 05/21/21 00:10 80 21 05/21/21 00:02 83 23 165/90 H 05/20/21 23:57 83 22 165/90 H 05/20/21 23:49 36.8 C 83 18 169/87 H Pulse Ox 05/21/21 12:47 94 05/21/21 11:44 96 05/21/21 10:45 95 05/21/21 10:16 96 05/21/21 09:46 96 05/21/21 09:30 97 05/21/21 09:20 97 05/21/21 09:10 97 05/21/21 09:00 98 05/21/21 08:50 100 05/21/21 08:40 99 05/21/21 08:30 98 05/21/21 08:23 100 05/21/21 04:00 94 05/21/21 03:00 95 05/21/21 02:50 95 05/21/21 02:48 94 05/21/21 02:47 98 05/21/21 02:40 93 05/21/21 02:30 93 05/21/21 02:20 93 05/21/21 02:10 93 05/21/21 02:00 94 05/21/21 01:50 93 05/21/21 01:40 94 05/21/21 01:30 95 05/21/21 01:21 97 05/21/21 01:00 96 05/21/21 00:50 96 05/21/21 00:40 96 05/21/21 00:30 96 05/21/21 00:20 96 05/21/21 00:10 96 05/21/21 00:02 98 05/20/21 23:57 05/20/21 23:49 96 Pain Intensity Abdomen: Pain Intensity: 2 Transfer of Care Handoff Completed per policy Notes Mental Status: alert / awake / arousable and participated in evaluation Patient Amnestic to Procedure: Yes Nausea / Vomiting: adequately controlled Pain: adequately controlled Airway Patency, RR, SpO2: stable & adequate BP & HR: stable & adequate Hydration State: stable & adequate Anesthetic Complications: no major complications apparent and Pt Satisfied with anesthetic care
[2021-05-21] MEDS: MoRPHine SULFATE 2 MG/ML CARP IV PRN ×4 (14:14→21:32)
[2021-05-21] MEDS: PIPERACILLIN/TAZOBACTAM 3.375 GM in DEXTROSE 5% 100 ML IV SCH ×2 (16:21→23:07)
--- NOTE | 2021-05-21 17:29 | Electrocardiogram Report ---
Test Reason : Blood Pressure : / mmHG Vent. Rate : 081 BPM Atrial Rate : 081 BPM P-R Int : 148 ms QRS Dur : 080 ms QT Int : 384 ms P-R-T Axes : 051 -13 013 degrees QTc Int : 446 ms Normal sinus rhythm Normal ECG No previous ECGs available Confirmed by Yovanny Waterman ([id number]) on 05/21/2021 5:29:07 PM Referred By: REFERRED SELF Confirmed By:Yovanny Waterman
[2021-05-22] MEDS: LACTATED RINGER'S 1,000 ML IV SCH ×2 (00:34→06:30)
[2021-05-22] MEDS: ACETAMINOPHEN 1,000 MG/100 ML VIAL IV SCH ×3 (02:29→19:30)
[2021-05-22 07:51] LABS: Eosinophils # (auto) 0.03 K/uL (0-0.5); Eosinophils % (auto) 0.2 %; Hematocrit (blood only) 36.7 % (42-52); Hemoglobin 12.8 g/dL (14.0-18.0); Immature Granulocytes # (auto) 0.03 K/uL (0.00-0.02); Immature Granulocytes % (auto) 0.2 %; Lymphocytes # (auto) 0.89 K/uL (1.2-3.4); Lymphocytes % (auto) 7.3 %; Mean Corpuscular Hemoglobin 30.5 pg (25-34); Mean Corpuscular Hgb Conc 34.9 g/dL (32-36); Mean Corpuscular Volume 87.4 fL (80-100); Mean Platelet Volume 9.8 fL (7.4-10.4); Monocytes # (auto) 0.47 K/uL (0.11-0.59); Monocytes % (auto) 3.8 %; Neutrophils # (auto) 10.84 K/uL (1.4-6.5); Neutrophils % (auto) 88.5 %; Platelet Count 233 K/uL (130-400); RDW Coefficient of Variation 12.9 % (11.5-14.5); RDW Standard Deviation 41.6 fL (36.4-46.3); White Blood Count 12.26 K/uL (4.8-10.8)
[2021-05-22 08:04] LABS: BUN Creatinine Ratio 16.2 (10-20); Calcium 8.1 mg/dl (8.5-10.1); Creatinine Clr Calc Pharmacy 77.5 ml/min; Est GFR (African American) 97.2 ml/min; Est GFR (Non-African American) 83.9 ml/min
[2021-05-22] MEDS: MoRPHine SULFATE 2 MG/ML CARP IV PRN ×2 (08:23→22:26)
--- NOTE | 2021-05-22 08:27 | Surgery Progress Note ---
Date of Service May 22, 2021 Assessment & Plan (1) Pneumoperitoneum of unknown etiology: POD 1 ex lap, PSBRsxn cont martinez, will start on alfuzosin cont Zosyn cont NG, try to limit ice WBC down to 12, afebrile Admission and Anticipated Discharge Date Admission Date: May 21, 2021 Supervising Physician Co-Signing Physician Notes pnt s&e, agree with above. POD #1 laparoscopic washout with partial small elizabeth resection for perforation. martinez replaced overnight for retention, which has been a chronic problem for the patient. Otherwise doing well, pain controlled. afvss, abd soft, dressing c/d/i. frances's with ss output. NG with moderate output. wbc downtrending. continue ng, continue martinez. discussed with urology, will start alfuzosin. hydronephrosis likely related to chronic bladder outlet obstruction. ambulate, continue abx. Subjective pain managed, martinez replaced, taking fair amount of ice Physical Exam Gastrointestinal (Abdomen): Inspection/Auscultation: abdomen not distended Percussion/Palpation: abdomen soft NG 450 UOP 1050 Results & Data ([facility]) Vital Signs (Past 12 Hours) Vital Signs Temp Pulse Resp BP Pulse Ox 05/22/21 07:34 36.7 C 62 16 125/71 95 05/22/21 03:53 36.9 C 68 18 126/71 96 05/21/21 22:17 37.2 C 73 18 134/73 95 PG Care Time/CCT Total # of Minutes Spent Total Time Spent with Patient: Total time spent is greater than 50% in coordination of care (as documented) at patient's floor/unit and/or counseling patient: Coding Level of Care Code None Diagnoses Pneumoperitoneum of unknown etiology K66.8
[2021-05-22] MEDS: PIPERACILLIN/TAZOBACTAM 3.375 GM in DEXTROSE 5% 100 ML IV SCH ×3 (09:08→23:09)
[2021-05-22] MEDS: METOPROLOL SUCC 25MG EXT REL TAB PO SCH (09:09)
[2021-05-22] MEDS: KETOROLAC TROMETHAMINE 15 MG/ML VIAL IV SCH ×3 (09:09→19:32)
[2021-05-22] MEDS: ALFUZOSIN HCL 10 MG TAB PO SCH (09:09)
[2021-05-22] MEDS: D5W AND 1/2NSS + 20MEQ KCL 20 MEQ/1,000 ML BAG IV SCH ×3 (09:21→22:13)
[2021-05-22] MEDS: PANTOprazole 40 MG in SYRINGE 0 ML IV SCH (11:37)
[2021-05-23] MEDS: KETOROLAC TROMETHAMINE 15 MG/ML VIAL IV SCH ×4 (02:35→19:54)
[2021-05-23] MEDS: ACETAMINOPHEN 1,000 MG/100 ML VIAL IV SCH (02:35)
[2021-05-23] MEDS: D5W AND 1/2NSS + 20MEQ KCL 20 MEQ/1,000 ML BAG IV SCH ×3 (04:37→19:54)
[2021-05-23] MEDS: MoRPHine SULFATE 2 MG/ML CARP IV PRN (05:07)
[2021-05-23] MEDS: METOPROLOL SUCC 25MG EXT REL TAB PO SCH (08:05)
[2021-05-23] MEDS: PIPERACILLIN/TAZOBACTAM 3.375 GM in DEXTROSE 5% 100 ML IV SCH ×3 (08:05→22:59)
[2021-05-23] MEDS: ALFUZOSIN HCL 10 MG TAB PO SCH (08:05)
--- NOTE | 2021-05-23 09:08 | Surgery Progress Note ---
Date of Service May 23, 2021 Assessment & Plan (1) Bowel perforation: POD#2 dx laparoscopy and small bowel resection for perf, doing well. passing flatus and abd flat, but ng 1L. d/c martinez after alfuzosin check kub, likely remove ng today cont frances's ambulation, IS Start lovenox cont abx, will d/c with orals for 10-14 days total potential d/c in next few days Admission and Anticipated Discharge Date Admission Date: May 21, 2021 Subjective POD#2 dx laparoscopy and partial small bowel resection for perforation. Doing well, minimal pain. Still passing flatus. Hopes to get martinez and ng tube out Physical Exam Constitutional: WD/WN, vitals as above Gastrointestinal (Abdomen): normal bowel sounds, soft, nontender, no hepatosplenomegaly Inspection/Auscultation: + abdominal surgical incision (no infection) frances's ss. ng with 1L out over 24 hours Results & Data ([facility]) Vital Signs (Past 12 Hours) Vital Signs Temp Pulse Resp BP Pulse Ox 05/23/21 07:34 36.6 C 68 18 160/83 H 96 05/22/21 23:35 36.8 C 65 16 133/74 96 PG Care Time/CCT Total # of Minutes Spent Total Time Spent with Patient: Total time spent is greater than 50% in coordination of care (as documented) at patient's floor/unit and/or counseling patient: Coding Level of Care Code None Diagnoses Bowel perforation K63.1
[2021-05-23 09:45] LABS: Eosinophils # (auto) 0.11 K/uL (0-0.5); Hematocrit (blood only) 37.6 % (42-52); Hemoglobin 12.9 g/dL (14.0-18.0); Immature Granulocytes # (auto) 0.03 K/uL (0.00-0.02); Immature Granulocytes % (auto) 0.3 %; Lymphocytes # (auto) 0.97 K/uL (1.2-3.4); Lymphocytes % (auto) 8.5 %; Mean Corpuscular Hemoglobin 30.6 pg (25-34); Mean Corpuscular Hgb Conc 34.3 g/dL (32-36); Mean Corpuscular Volume 89.3 fL (80-100); Mean Platelet Volume 9.9 fL (7.4-10.4); Monocytes # (auto) 0.58 K/uL (0.11-0.59); Monocytes % (auto) 5.1 %; Neutrophils % (auto) 85.1 %; Platelet Count 245 K/uL (130-400); RDW Coefficient of Variation 12.7 % (11.5-14.5); RDW Standard Deviation 41.1 fL (36.4-46.3); Red Blood Count 4.21 M/uL (4.7-6.1); White Blood Count 11.39 K/uL (4.8-10.8)
[2021-05-23 10:15] LABS: BUN Creatinine Ratio 14.5 (10-20); Calcium 8.1 mg/dl (8.5-10.1); Creatinine Clr Calc Pharmacy 73.9 ml/min; Est GFR (African American) 95.4 ml/min; Est GFR (Non-African American) 82.3 ml/min
[2021-05-23] MEDS: ENOXAPARIN INJ 40 MG/0.4 ML SYR SQ SCH (10:29)
--- NOTE | 2021-05-23 10:53 | XRay Report ---
XR KUB/Abdomen 1 view CLINICAL HISTORY: eval bowel gas pattern COMPARISON STUDY: No previous studies for comparison. FINDINGS: Multiple nondilated gas and stool-filled loops of large bowel are seen. Moderate amount of stool is seen within left hemiabdomen. Tip and fenestrated side-port of the gastric tube is seen below level of hemidiaphragm. Surgical drainage are seen projecting to the right and left pelvic region. Partially visualized bilateral hip prosthesis are seen. Mild degenerative changes of the spine. IMPRESSION: 1. Nonobstructive bowel gas pattern. Moderate amount of stool within left hemiabdomen 2. Expected position of distal aspect of the gastric tube. 3. surgical drainage. 4. The rest of findings as detailed above. ACT 112: Negative or not required by law. The above report was generated using voice recognition software. It may contain grammatical, syntax o r spelling errors. Electronically signed by: Nora Hirsch DO 05/23/2021 10:51 AM
[2021-05-23] MEDS: PANTOprazole 40 MG in SYRINGE 0 ML IV SCH (11:43)
[2021-05-23] MEDS ORDERED: bisacodyL 10 MG SUPP PR STA (12:21)
[2021-05-23] MEDS ORDERED: ACETAMINOPHEN 325 MG TAB PO PRN (14:24)
[2021-05-23] MEDS: DOCUSATE SODIUM 100 MG CAP PO SCH (19:57)
[2021-05-24] MEDS: KETOROLAC TROMETHAMINE 15 MG/ML VIAL IV SCH ×4 (02:22→21:35)
[2021-05-24] MEDS: D5W AND 1/2NSS + 20MEQ KCL 20 MEQ/1,000 ML BAG IV SCH ×2 (05:31→21:43)
[2021-05-24 06:36] LABS: Eosinophils # (auto) 0.24 K/uL (0-0.5); Eosinophils % (auto) 2.7 %; Hematocrit (blood only) 34.4 % (42-52); Hemoglobin 12.2 g/dL (14.0-18.0); Immature Granulocytes # (auto) 0.01 K/uL (0.00-0.02); Immature Granulocytes % (auto) 0.1 %; Lymphocytes # (auto) 0.99 K/uL (1.2-3.4); Lymphocytes % (auto) 11.1 %; Mean Corpuscular Hemoglobin 30.7 pg (25-34); Mean Corpuscular Hgb Conc 35.5 g/dL (32-36); Mean Corpuscular Volume 86.4 fL (80-100); Mean Platelet Volume 9.4 fL (7.4-10.4); Monocytes # (auto) 0.68 K/uL (0.11-0.59); Monocytes % (auto) 7.6 %; Neutrophils # (auto) 7.01 K/uL (1.4-6.5); Neutrophils % (auto) 78.5 %; Platelet Count 242 K/uL (130-400); RDW Coefficient of Variation 12.5 % (11.5-14.5); RDW Standard Deviation 39.9 fL (36.4-46.3); Red Blood Count 3.98 M/uL (4.7-6.1); White Blood Count 8.93 K/uL (4.8-10.8)
[2021-05-24 07:11] LABS: BUN Creatinine Ratio 14.1 (10-20); Creatinine Clr Calc Pharmacy 79.3 ml/min; Est GFR (African American) 98.2 ml/min; Est GFR (Non-African American) 84.7 ml/min; Potassium 3.8 mmol/L (3.5-5.1)
[2021-05-24] MEDS: PIPERACILLIN/TAZOBACTAM 3.375 GM in DEXTROSE 5% 100 ML IV SCH ×3 (07:32→23:28)
--- NOTE | 2021-05-24 07:55 | Surgery Progress Note ---
Date of Service May 24, 2021 Assessment & Plan (1) Bowel perforation: POD#3 dx laparoscopy and small bowel resection for perf WBC 8, afebrile advance to full liquids cont IV abx Admission and Anticipated Discharge Date Admission Date: May 21, 2021 Supervising Physician Co-Signing Physician Notes pnt s&e, agree with above. POD #2 laparoscopic washout with partial small bowel resection for perforation. Given alfuzosin and Vora removed yesterday was able to void without difficulty. KUB revealed no evidence of ileus and he has been passing flatus so his NG tube was removed which he tolerated. He has been having clear liquids and is now on a full liquid diet. Overall doing well, pain controlled. On exam he is afebrile stable vitals. Incisions clean dry and intact. ASHLIE drains serosanguineous. WBC normal. Will DC one of his ASHLIE drains, advance to low fiber diet. We will continue antibiotics and transition him to orals likely tomorrow. We will probably remove the ASHLIE drain on the other side and discharge to home tomorrow. He will follow-up with myself or a surgeon back home in 2 weeks. We reviewed his pathology results which showed a focal perforation with a very small area of acute on chronic inflammation, but did not feel this was ischemic. It is unclear as to the etiology of his small bowel perforation. He will need outpatient follow-up with GI for potential small bowel follow-through or capsule endoscopy given his pathology findings. Subjective loose BM, no nausea with clears, able to void Physical Exam Gastrointestinal (Abdomen): Inspection/Auscultation: + abdomen distended (slightly) and + abdominal surgical drain present (draining around L ASHLIE) Percussion/Palpation: abdomen soft Results & Data ([facility]) Vital Signs (Past 12 Hours) Vital Signs Temp Pulse Resp BP Pulse Ox 05/24/21 07:21 36.8 C 67 18 143/83 H 96 05/23/21 23:18 36.7 C 70 16 123/61 96 PG Care Time/CCT Total # of Minutes Spent Total Time Spent with Patient: Total time spent is greater than 50% in coordination of care (as documented) at patient's floor/unit and/or counseling patient: Coding Level of Care Code None Diagnoses Bowel perforation K63.1
[2021-05-24] MEDS: ENOXAPARIN INJ 40 MG/0.4 ML SYR SQ SCH (08:46)
[2021-05-24] MEDS: METOPROLOL SUCC 25MG EXT REL TAB PO SCH (08:46)
[2021-05-24] MEDS: ASPIRIN 81 MG ECTAB PO SCH (08:46)
[2021-05-24] MEDS: ALFUZOSIN HCL 10 MG TAB PO SCH (08:46)
[2021-05-24] MEDS: PANTOprazole 40 MG TAB PO SCH (08:46)
[2021-05-24] MEDS: VALSARTAN 80 MG TAB PO SCH (08:46)
[2021-05-24] MEDS: DOCUSATE SODIUM 100 MG CAP PO SCH ×2 (08:48→21:35)
[2021-05-24] MEDS ORDERED: oxyCODONE/ACETAMINOPHEN 5mg/325mg TAB PO PRN ×2 (08:58)
[2021-05-25] MEDS: KETOROLAC TROMETHAMINE 15 MG/ML VIAL IV SCH ×2 (03:20→08:57)
[2021-05-25 06:36] LABS: Basophils # (auto) 0.01 K/uL (0-0.2); Basophils % (auto) 0.1 %; Eosinophils # (auto) 0.42 K/uL (0-0.5); Eosinophils % (auto) 4.2 %; Hemoglobin 12.4 g/dL (14.0-18.0); Immature Granulocytes # (auto) 0.03 K/uL (0.00-0.02); Immature Granulocytes % (auto) 0.3 %; Lymphocytes # (auto) 1.15 K/uL (1.2-3.4); Lymphocytes % (auto) 11.4 %; Mean Corpuscular Hemoglobin 30.5 pg (25-34); Mean Corpuscular Hgb Conc 35.4 g/dL (32-36); Mean Platelet Volume 9.1 fL (7.4-10.4); Monocytes # (auto) 0.89 K/uL (0.11-0.59); Monocytes % (auto) 8.8 %; Neutrophils # (auto) 7.58 K/uL (1.4-6.5); Neutrophils % (auto) 75.2 %; Platelet Count 269 K/uL (130-400); RDW Coefficient of Variation 12.5 % (11.5-14.5); RDW Standard Deviation 39.5 fL (36.4-46.3); Red Blood Count 4.07 M/uL (4.7-6.1); White Blood Count 10.08 K/uL (4.8-10.8)
[2021-05-25 07:18] LABS: BUN Creatinine Ratio 17.1 (10-20); Calcium 8.3 mg/dl (8.5-10.1); Creatinine Clr Calc Pharmacy 86.8 ml/min; Est GFR (African American) 101.8 ml/min; Est GFR (Non-African American) 87.9 ml/min
[2021-05-25] MEDS: ENOXAPARIN INJ 40 MG/0.4 ML SYR SQ SCH (08:56)
[2021-05-25] MEDS: DOCUSATE SODIUM 100 MG CAP PO SCH (08:57)
[2021-05-25] MEDS: PIPERACILLIN/TAZOBACTAM 3.375 GM in DEXTROSE 5% 100 ML IV SCH (08:57)
[2021-05-25] MEDS: VALSARTAN 80 MG TAB PO SCH (08:57)
[2021-05-25] MEDS: PANTOprazole 40 MG TAB PO SCH (08:57)
[2021-05-25] MEDS: ASPIRIN 81 MG ECTAB PO SCH (08:57)
[2021-05-25] MEDS: ALFUZOSIN HCL 10 MG TAB PO SCH (08:57)
--- NOTE | 2021-05-25 09:55 | Surgery Progress Note ---
Date of Service May 25, 2021 Assessment & Plan (1) Bowel perforation: POD#4 dx laparoscopy and small bowel resection for perf Patient doing well, has return of bowel function. Diet advanced and tolerating well WBC 10, patient afebrile. Surgical incisions c/d/i Will plan on removing L sided ASHLIE drain today Will send patient out on a course of po abx for home He plans to stay local today upon discharge then go home in a day or so Patient to follow up with Dr. Vasquez within 2 weeks. Dispo instructions reviewed. Will also leave office # for urology for pt to follow up for chronic urinary retention newly started on Alfuzosin this admission Admission and Anticipated Discharge Date Admission Date: May 21, 2021 Supervising Physician Co-Signing Physician Notes Patient seen and examined, labs reviewed, agree with above. POD #4 diagnostic laparoscopy with washout and small bowel resection for perforated small bowel. Tolerated a low fiber diet, had a bowel movement and is passing flatus. Overall feels much better than he did prior to surgery. On exam he is afebrile with stable vitals. His abdomen is slightly distended but positive bowel sounds. Incisions without evidence of infection. Appropriately tender to palpation. Remaining ASHLIE drain has been removed. WBC normal, remaining labs unremarkable. Plan for discharge to home. He will need 1 more week of oral antibiotics. We also prescribed pain medication and alfuzosin. He was encouraged to follow-up with urologist regarding his prostate issues and refills alfuzosin. Wound care instructions and activity restrictions as well as return precautions were reviewed. Low fiber diet for the next few weeks. Follow-up with me in 2 weeks. I did encourage him to follow-up with gastroenterology in his area as the etiology of his perforation is still unclear. I would recommend he have small bowel imaging study and/or a capsule endoscopy to further assess. Subjective Patient says he is feeling well. Tolerated a low fiber diet this AM. Denies nausea/vomiting., Having bowel movements. Pain controlled. Physical Exam Physical Exam: awake/alert Constitutional: no acute distress Gastrointestinal (Abdomen): Inspection/Auscultation: + abdominal surgical incision (c/d/i with dermabond overtop) and + abdominal surgical drain present (L ASHLIE with serous drainage; leakage around bandage) Percussion/Palpation: abdomen soft; abdomen nontender Results & Data ([facility]) Vital Signs (Past 12 Hours) Vital Signs Temp Pulse Resp BP Pulse Ox 05/25/21 07:59 36.8 C 67 18 159/83 H 96 05/24/21 22:15 36.8 C 68 16 141/80 H 94 PG Care Time/CCT Total # of Minutes Spent Total Time Spent with Patient: Total time spent is greater than 50% in coordination of care (as documented) at patient's floor/unit and/or counseling patient: Coding Level of Care Code None Diagnoses Bowel perforation K63.1
[2021-05-25] MEDS: METOPROLOL SUCC 25MG EXT REL TAB PO SCH (10:16)
--- NOTE | 2021-05-30 13:06 | Discharge Summary ---
Date of Service May 30, 2021 Admission HPI Per Admitting Provider 80-year-old male presented to the emergency department with sudden onset abdominal pain started at 4:30 yesterday afternoon. He is from [place] and is in town visiting his granddaughter. His is present with him. The pain was quite severe and extended from his rectum up to his xiphoid. He had some nausea when he stood up to use the restroom and they decided to come into the emergency department. He has used NSAIDs in the past, but has not needed them since he had a shoulder replaced 4 months ago. He had a hemorrhoid surgery in the past but no other abdominal surgeries. No prior history of diverticulitis. He his last colonoscopy was about 5 to 10 years ago with no significant findings. He is otherwise healthy with an occasional irregular heartbeat but no history of A. fib. He does not smoke. No history of clotting disorder. CT of the abdomen showed moderate pneumoperitoneum and a questionable pneumatosis of the small bowel concerning for ischemia with perforation. Principal Diagnosis small bowel perforation Discharge Data Allergies Allergy/AdvReac Type Severity Reaction Status Date / Time No Known Allergies Allergy Unverified 05/21/21 01:04 Consultations 05/21/21 02:48 Consult General Surgery Stat Procedures Performed Operation Date: 05/21/21 04:25 Actual Procedures p Diagnostic Laparoscopy, Laparoscopic Washout, Laparoscopic Assisted Small Bowel Resection(Not Applicable) - Thom Vasquez DO, FACS Ordered Studies 05/21/21 00:06 CT abd pelvis IV con only Urgent Hospital Course (1) Bowel perforation: 80 year old male presented with abdominal pain, leukocytosis, and CT showing pneumoperitoneum. Taken urgently to the operating room on the manager helpdesk of 21 May 2021 for diagnostic laparoscopy. Found to have small bowel perforation, no obvious etiology, remainder of bowel was normal. Laparoscopic assisted small bowel resection and side to side functional end to end anastomosis was performed. He was transferred to the medical surgical [facility] where he recovered without incident. He had urinary retention and was treated with alfuzosin. His ng tube was removed when he had return of bowel function and his diet was advanced. His ASHLIE drains were removed. At the time of discharge he was tolerating a low fiber diet, urinating on his own, his pain was controlled. He was discharged to home on oral antibiotics with plans to follow up in the general surgery clinic in 2 weeks. His activity restrictions, wound care instructions, and return precautions were reviewed. Recommend follow up with GI for possible small bowel capsule endoscopy or follow through study as etiology of perforation was unclear on pathology. He was also instructed to follow up with urology for chronic prostate issues with urinary retention. Total Time Total Time Spent Total Time Spent (In Minutes): 45 Discharge Plan Discharge Items Patient Disposition: Home - Self-Care Reason For Visit: PNEUMOPERITONEUM Discharge Diagnosis: partial small bowel resection Condition on Discharge: Good Activity: Per Instructions section Lifting: No more than 10 pounds Bathing Comment: may shower; no soaking in tubs/pools Exercise/Sports: Wait until after follow-up appointment Driving/Machine Use: no driving while taking narcotics for pain Non-emergency contact: Surgeon Call non-emergency contact if: you have any medication questions, your symptoms worsen, your pain is not controlled, your pain is worsening, your pain is unusual for you, your pain is concerning for you, you have a fever, your temperature is above 101.5, your wound has increased redness, your wound has increased drainage and your wound pain has increased Follow-up/Referrals: Thom Vasquez DO, FACS [Physician] - 06/04/21 11:15 am (Please call to schedule follow up in clinic within 1-2 weeks) [facility] [Physician] - Diet: Low Fiber Addtl Attending Provider Instructions: Please call to schedule an appointment in the Urology clinic at your convenience as you have started on a new medication called Alfuzosin, for follow up of history of chronic urinary retention. Their office number is [phone]. You should follow up with a wireless field technician in your area for a small bowel imaging study or capsule endoscopy study for further assessment of the etiology of your bowel perforation. You may change the dressings where your surgical drains were daily with dry 4x4 gauze and medical tape until the area is healed and no longer draining. Please complete the full course of antibiotic prescribed to you. Pending Studies at Discharge: Yes Studies:: surgical pathology Stand-Alone Forms: [facility] [employer], Opioid Pain Management, Smoking Cessation Medications and DC Order Prescriptions: New oxycodone-acetaminophen [Percocet] 5-325 mg tablet 1 - 2 tab PO .q4-6h PRN (Reason: pain, for initial therapy, max 6 tabs per day) Qty: 15 RF: 0 amoxicillin-pot clavulanate [Augmentin] 875-125 mg tablet 1 tab PO BID Qty: 14 RF: 0 alfuzosin 10 mg tablet extended release 24 hr 10 mg PO DAILY Qty: 30 RF: 0 Continued valsartan 80 mg Tablet 80 mg PO DAILY RF: 0 aspirin [Aspirin Low Dose] 81 mg Tablet,Delayed Release (Dr/Ec) 81 mg PO DAILY RF: 0 pantoprazole 20 mg Tablet,Delayed Release (Dr/Ec) 20 mg PO DAILY RF: 0 metoprolol succinate 25 mg Tablet Extended Release 24 Hr 25 mg PO DAILY RF: 0 vkeomeufcrry-jszgonpu-fafglj Tablet 1 tab PO DAILY RF: 0 Discharge Orders: Discharge Order (Routine); Ordered 05/25/21 Ordered By: Bruna Her/Other Patient Handouts: Low-Fiber Diet, Anatomy of the Digestive System Admission Data Admit Date/Time: 05/21/21 08:00 Attending Provider: Thom Vasquez Admit Provider: Ana Maria Padilla Primary Care Provider: Emeterio Melendez Other Providers: Thom Vasquez Other Interventions: Discharge Summary Assessment (RN) Last Done: 05/25/21 12:27 Coding Level of Care Code D/C DAY MANAGEMENT >30 MINS Diagnoses Bowel perforation K63.1
== END 2021-05-25 13:23 | disposition home or self-care (01) | DRG 331 ==
LOC: ED 23:44 → OR 05-21 04:44 → 3W 05-21 04:44